=== PATIENT | female | born 1980 | race Caucasian/White ===

== ENCOUNTER 2022-03-02 09:08 | Emergency (ER) | payer OTHER, SELFPAY ==
[2022-03-02] VITALS (13 sets, daily range): BP systolic 94–111; BP diastolic 57–95; PULSE 96–130; RESP 16–24; TEMP 37; O2SAT 98–100
--- NOTE | ~2022-03-02 | CT_ITS ---
EXAMINATION: CT abdomen pelvis w con DATE: 03/02/2022 10:25 INDICATION: Right lower quadrant pain. History of Crohn's disease. TECHNIQUE: Computed tomography (CT) of the abdomen and pelvis was performed with 100 cc Omnipaque 350 intravenous contrast. The dose-length product was 542.69 mGy-cm. Automated exposure control and iter ative reconstruction technique were employed. COMPARISON: None. FINDINGS: Lung bases are unremarkable. Heart size normal. No significant pleural or pericardial effus ion. No significant vascular abnormality. There is significant abnormal thickening of the terminal il eum. The liver, spleen, pancreas, adrenal glands and kidneys are unremarkable. There is a probable ga llstone. Nonobstructive bowel gas pattern. Moderate free fluid in the pelvis. Uterus is retroverted. No significant lymphadenopathy. No free air. No acute osseous abnormality. The appendix is not positi vely visualized. There is no pericecal inflammatory change to suggest appendicitis. IMPRESSION: 1. Abnormal thickening of the terminal ileum, compatible with Crohn's disease. 2: Moderate free fluid in the pelvis. 3: Probable cholelithiasis. Consider correlation with ultrasound. Reviewed, dictated and finalized at location A.
--- NOTE | ~2022-03-02 | XR_ITS ---
EXAMINATION: XR chest 2V 03/02/2022 10:19 INDICATION: Chest pain PROCEDURE: 2 view chest COMPARISON: No prior studies for comparison. FINDINGS: The lungs are clear. The cardiomediastinal silhouette is within normal limits. There are no pleural effusions. There is no pneumothorax suspected. IMPRESSION: 1: NO ACUTE CARDIOPULMONARY DISEASE. Reviewed, dictated and finalized at location A.
--- NOTE | 2022-03-02 09:15 | ECG_ITS ---
Measurements Intervals [place] Rate: 125 P: 64 KS: 163 QRS: 7 QRSD: 92 T: 52 QT: 285 QTc: 411 Interpretive Statements SINUS TACHYCARDIA BASELINE ARTIFACT- III, AVR, AVL, AVF ABNORMAL ECG NO PREVIOUS ECG AVAILABLE FOR COMPARISON Electronically Signed On 03-02-2022 13:47:26 CDT by Carlos Fleming D.O.
[2022-03-02 09:35] LABS: Basophils Percent Auto 0.6 % (0.2-1.2); Eosinophils Absolute Auto 0.1 K/mm3 (0-0.3); Hematocrit 34.8 % (37.0-47.0); Hemoglobin 11.3 g/dL (12.0-15.0); Immature Granulocyte Absolute 0.02 K/mm3 (0.00-0.031); Immature Granulocyte Percent A 0.4 % (0-0.5); Lymphocytes Absolute Auto 0.59 K/mm3 (0.9-3.2); Lymphocytes Percent Auto 11.5 % (18.3-44.2); Mean Corpuscular HGB Conc 32.5 g/dl (32-36); Mean Corpuscular Hemoglobin 28.9 pg (26-34); Mean Platelet Volume 9.4 fl (7.4-10.4); Monocytes Absolute Auto 0.5 K/mm3 (0.1-0.6); Monocytes Percent Auto 9.7 % (2.6-8.5); Neutrophils Percent Auto 76.8 % (45.5-73.1); Platelet Count Result 161 k/mm3 (150-375); Red Blood Count 3.91 M/mm3 (4.2-5.4); Red Cell Distribution Width 14.5 % (11.5-14.5); White Blood Count 5.2 K/mm3 (4.5-10.0)
[2022-03-02 09:48] LABS: INR 1.2; Prothrombin Time 14.5 Seconds (11.1-14.7)
[2022-03-02 09:49] LABS: Partial Thromboplastin Time 41.2 SECONDS (22.3-36.8)
[2022-03-02 09:52] LABS: Alanine Aminotransferase 18 U/L (6-35); Alkaline Phosphatase 57 U/L (38-126); Anion Gap 10 mmol/L (8-16); Aspartate Amino Transferase 27 U/L (14-36); Bilirubin,Total 0.5 mg/dL (0.2-1.3); Blood Urea Nitrogen 9 mg/dL (7-17); Calcium 9.2 mg/dL (8.4-10.2); Carbon Dioxide 24 mmol/L (22-30); Chloride 102 mmol/L (98-107); Estimated CRCL calculation 94 ml/min; Estimated Glomerular Filt Rate > 60; Glucose 96 mg/dL (65-110); Lipase 97 U/L (23-300); Potassium 3.7 mmol/L (3.4-5.0); Sodium 136 mmol/L (137-145)
[2022-03-02 10:03] LABS: Troponin I < 0.012 ng/mL (0.000-0.034)
[2022-03-02] MEDS: SODIUM CHLORIDE 0.9% IV 1,000 ML 999 ML IV CONT (10:07)
--- NOTE | 2022-03-02 10:22 | ED.GENADULT ---
HPI - General Adult General Chief complaint: Arrhythmia/Palpitations Stated complaint: FAST HEART RATE Time Seen by Provider: 03/02/22 09:20 History of Present Illness HPI narrative: Negative patient is a 41-year-old female who presents ER with concerns for elevated heart rate. Has noticed for the last couple days her heart rate has been going up to 140 bpm. Is not sustained but she still remains tachycardic in the 1 teens and 20s. No fevers or chills or sweats. No chest pain or chest pressure. She has had some intermittent lightheadedness like she might pass out and feels flushed. Patient has history of Crohn's and has been having some right lower quadrant discomfort that is worse with movement. She had some right lower quadrant discomfort a couple months ago associate with diarrhea and was diagnosed with C. difficile. She was treated with vancomycin and has improved. No increase in diarrhea or blood in her stool. Related Data Allergies Allergy/AdvReac Type Severity Reaction Status Date / Time Sulfa (Sulfonamide Allergy Unknown HIVES Verified 03/02/22 09:35 Antibiotics) Review of Systems Review of Systems: All systems reviewed & are unremarkable except as noted in HPI and below Constitutional: Constitutional: Denies chills, Denies fatigue and Denies fever(s) ENT: Denies nasal congestion and Denies sore throat Cardiovascular: Cardiovascular: Denies chest pain, Reports rapid heart rate and Denies radiating jaw, neck or arm pain Respiratory: Respiratory: Denies cough, Denies dyspnea and Denies wheezing Gastrointestinal: Gastrointestinal: Reports abdominal pain, Reports diarrhea, Denies nausea and Denies vomiting Genitourinary: Genitourinary: Denies dysuria and Denies flank pain Neurologic: Reports dizziness, Denies focal weakness and Denies numbness Exam Narrative: GENERAL: Well-appearing, well-nourished, and in no acute distress. HEAD: Normocephalic, atraumatic. ENT: Mucous membranes moist. CHEST: Clear to auscultation. No respiratory distress. HEART: Tachycardic and regular. Normal peripheral pulses. ABDOMEN: Soft, tender palpation right lower quadrant with guarding, nondistended. EXTREMITIES: Normal range of motion. No edema. SKIN: Warm, dry, no rash. NEURO: Alert and oriented x3. PSYCH: Normal mood and affect. Course Course Emergency Course: Discussed with on-call doctor for patient's GI. Recommends prednisone taper 40 mg for a week and then decreasing by 10 each week. Needs to call clinic tomorrow. Patient verbalized understanding treatment plan. Vital Signs Vital signs: Vital Signs Temperature 98.6 F 03/02/22 09:11 Pulse Rate 117 H 03/02/22 09:11 Respiratory Rate 16 03/02/22 09:11 Blood Pressure 111/67 03/02/22 09:11 Pulse Oximetry 100 03/02/22 09:11 Oxygen Delivery Room Air 03/02/22 09:11 Temperature 98.6 F 03/02/22 09:11 Pulse Rate 102 H 03/02/22 12:01 Respiratory Rate 24 H 03/02/22 12:01 Blood Pressure 94/82 L 03/02/22 12:00 Pulse Oximetry 98 03/02/22 11:45 Oxygen Delivery Room Air 03/02/22 09:11 Medical Decision Making Vital Signs Vital Signs: Vital Signs Temperature 98.6 F 03/02/22 09:11 Pulse Rate 117 H 03/02/22 09:11 Respiratory Rate 16 03/02/22 09:11 Blood Pressure 111/67 03/02/22 09:11 Pulse Oximetry 100 03/02/22 09:11 Oxygen Delivery Room Air 03/02/22 09:11 Temperature 98.6 F 03/02/22 09:11 Pulse Rate 102 H 03/02/22 12:01 Respiratory Rate 24 H 03/02/22 12:01 Blood Pressure 94/82 L 03/02/22 12:00 Pulse Oximetry 98 03/02/22 11:45 Oxygen Delivery Room Air 03/02/22 09:11 Lab Data Result diagrams: 03/02/22 09:29 03/02/22 09:29 Labs: Lab Results 03/02/22 03/02/22 03/02/22 Range/Units 09:29 09:29 09:29 WBC 5.2 (4.5-10.0) K/mm3 RBC 3.91 L (4.2-5.4) M/mm3 Hgb 11.3 L (12.0-15.0) g/dL Hct 34.8 L (37.0-47.0) % MCV 89.0 (80-100) fl M
== END 2022-03-02 12:26 | disposition home or self-care (01) ==
PROVIDERS: Emergency Provider Emergency Medicine
DX: K50.00 Crohn's disease of small intestine without complications (principal); R93.2 Abnormal findings on diagnostic imaging of liver and biliary tract; R00.0 Tachycardia, unspecified
CPT/HCPCS: 36415; 71046; 74177; 80053; 83690; 84484; 85025; 85610; 85730; 93005; 96360; 99284; J7030; Q9967